=== PATIENT | male | born 1985 | race Two or more races ===

== ENCOUNTER 2019-05-12 08:05 | Emergency (ER) | payer MEDICAID ==
[~2019-05-12] VITALS: Ht 177.8 cm; Wt 111.0 kg
[2019-05-12] MEDS ORDERED: ONDANSETRON HCL 4MG/2ML INJ IV STA (08:27)
[2019-05-12] MEDS ORDERED: MORPHINE SULFATE 4 MG/ML CPJ (NOT FOR IM USE) IV STA (08:27)
[2019-05-12 08:57] LABS: EOSINOPHILS % 5.2 % (0.0-5.0); HEMATOCRIT. 46.2 % (42.0-52.0); HEMOGLOBIN. 16.2 g/dL (14.0-18.0); LYMPHOCYTES % 50.2 % (20.0-50.0); MEAN CORPUSCULAR HEMOGLOBIN 32.2 pg (28.0-32.0); MEAN PLATELET VOLUME 9.3 fl (7.4-10.4); MONOCYTES % 11.8 % (2.0-8.0); NEUTROPHILS % 31.8 % (40.0-76.0); PLATELET 188 x1000/uL (130-400); RED BLOOD CELL COUNT 5.02 mill/uL (4.7-6.1); RED CELL DISTRIBUTION WIDTH 13.5 % (11.6-14.6)
[2019-05-12 09:03] LABS: CHLORIDE 108 mEq/L (98-107)
[2019-05-12 09:04] LABS: INR 1.2
[2019-05-12] MEDS ORDERED: IOHEXOL-300 100 ML BOTTLE ONE (10:05)
[2019-05-12] MEDS ORDERED: HYDROCODONE/ACETAMINOPHEN 5/325MG TABLET PO ONE (10:45)
[2019-05-12 11:01] VITALS: BP 153/98
== END 2019-05-12 11:02 | disposition home or self-care (01) ==
LOC: ER 08:05
DX: S39.012A Strain of muscle, fascia and tendon of lower back, initial encounter (principal); S40.812A Abrasion of left upper arm, initial encounter; R10.11 Right upper quadrant pain; Z86.19 Personal history of other infectious and parasitic diseases; Z87.19 Personal history of other diseases of the digestive system; V49.09XA Driver injured in collision with other motor vehicles in nontraffic accident, initial encounter; Y93.89 Activity, other specified; Y92.89 Other specified places as the place of occurrence of the external cause; Y99.8 Other external cause status
CPT/HCPCS: 36415; 71045; 74177; 80053; 83690; 85025; 85610; 96374; 96375; 99284; J2270; J2405; Q9967